=== PATIENT | female | born 1965 | race Caucasian/White ===

== ENCOUNTER → 2024-10-07 | Day surgery (SDC) | payer OTHER ==
[~2024-10-07] MED LIST: ATORVASTATIN CA10 MG PO; FENTANYL CITRATE/PF 100MCG/2 ML INJ ONE; GLUCAGON FOR INJ 1 MG VIAL ONE; LIDOCAINE HCL 2% LOCAL INJ 5 ML SDV VIAL INJ ONE; MIDAZOLAM HCL 2 MG/2 ML VIAL ONE; NURTEC ODT75 MG; PROPOFOL IV EMULSION 10 MG/ML 20 ML VIAL ONE
[2024-10-07] MEDS: LACTATED RINGER'S 1,000 ML ONE (13:51)
[2024-10-07 15:42] VITALS: TEMP 97
[2024-10-07 16:05] VITALS: BP 118/71; PULSE 89; RESP 16; O2SAT 98
== END | disposition home or self-care (01) ==
LOC: OR 12:34
PROVIDERS: ATTEND Internal Medicine Gastroenterology
DX: Z12.11 Encounter for screening for malignant neoplasm of colon (principal); D12.4 Benign neoplasm of descending colon; K29.50 Unspecified chronic gastritis without bleeding; B96.81 Helicobacter pylori [H. pylori] as the cause of diseases classified elsewhere; K25.3 Acute gastric ulcer without hemorrhage or perforation; K29.80 Duodenitis without bleeding; K20.90 Esophagitis, unspecified without bleeding; K21.9 Gastro-esophageal reflux disease without esophagitis; K57.30 Diverticulosis of large intestine without perforation or abscess without bleeding; K44.9 Diaphragmatic hernia without obstruction or gangrene; K59.00 Constipation, unspecified; K64.8 Other hemorrhoids; G47.33 Obstructive sleep apnea (adult) (pediatric); R01.1 Cardiac murmur, unspecified; R03.0 Elevated blood-pressure reading, without diagnosis of hypertension; E78.5 Hyperlipidemia, unspecified; F41.9 Anxiety disorder, unspecified; Z88.6 Allergy status to analgesic agent; Z79.899 Other long term (current) drug therapy; Z80.0 Family history of malignant neoplasm of digestive organs; Z87.898 Personal history of other specified conditions
CPT/HCPCS: 43239; 45380; J1610; J2003; J2250; J2704; J3010; J7121; 45378; 45385